=== PATIENT | female | born 1970 | race Two or more races ===

== ENCOUNTER 2017-03-18 18:00 | Emergency (ER) | payer MEDICAID, SELFPAY ==
[~2017-03-18] VITALS: Ht 157.5 cm; Wt 72.2 kg
[2017-03-18] MEDS ORDERED: SODIUM CHLORIDE FLUSH 10ML SYR IVF ONE (18:30)
[2017-03-18] MEDS ORDERED: SODIUM CHLORIDE 0.9% 1,000ML IVBOLUS ONE (18:30)
[2017-03-18] MEDS ORDERED: ONDANSETRON 2MG/ML, 2ML IVPush ONE (18:30)
[2017-03-18 19:03] LABS: BLOOD UREA NITROGEN 9 mg/dL (7-18)
[2017-03-18] MEDS ORDERED: HYDROmorphone 1 MG/ML, 1ML ONE (20:00)
[2017-03-18] MEDS ORDERED: HYDROmorphone 1 MG/ML, 1ML IM ONE (20:00)
[2017-03-18] MEDS ORDERED: OXYcodone/APAP 10/325MG TABLET ONE (21:14)
[2017-03-18 21:17] VITALS: BP 142/91
[2017-03-18] MEDS ORDERED: OXYcodone/APAP 10/325MG TABLET PO ONE (21:30)
== END 2017-03-18 21:20 | disposition home or self-care (01) ==
LOC: ED 21:14
DX: G43.011 Migraine without aura, intractable, with status migrainosus (principal); R10.31 Right lower quadrant pain; R10.32 Left lower quadrant pain; G89.29 Other chronic pain; I10 Essential (primary) hypertension; Z86.19 Personal history of other infectious and parasitic diseases; F13.20 Sedative, hypnotic or anxiolytic dependence, uncomplicated; F20.9 Schizophrenia, unspecified
CPT/HCPCS: 36415; 76830; 80048; 81003; 82040; 84703; 85025; 96372; 99285; J1170

== ENCOUNTER 2018-11-26 06:25 | Emergency (ER) | payer MEDICAID ==
[~2018-11-26] VITALS: Ht 157.5 cm; Wt 65.0 kg
[2018-11-26] MEDS ORDERED: ONDANSETRON 2MG/ML, 2ML IVPush ONE (07:30)
[2018-11-26] MEDS ORDERED: SODIUM CHLORIDE FLUSH 10ML SYR IVF ONE (07:30)
[2018-11-26] MEDS ORDERED: ACETAMINOPHEN 325 MG TABLET PO ONE (07:30)
--- NOTE | 2018-11-26 07:31 | NUR ---
AFTER PROVIDER EXAM, UP TO BATHROOM WITHOUT ASSISTANCE AND THEN TO CT
[2018-11-26 07:51] LABS: RAPID INFLUENZA A Negative (Negative); RAPID INFLUENZA B Negative (Negative)
[2018-11-26] MEDS ORDERED: KETOROLAC 30 MG/1 ML IVPush ONE (08:00)
--- NOTE | 2018-11-26 08:04 | NUR ---
UPON RETURN FROM CT IV ESTABLISHED. LAB DRAWING BLOOD
[2018-11-26 08:31] LABS: BASOPHILS # (AUTO) 0.02 x10^3/uL (0-0.1); BASOPHILS % (AUTO) 0 % (0-1); EOSINOPHILS # (AUTO) 0.02 x10^3/uL (0-0.4); EOSINOPHILS % (AUTO) 0 % (1-7); LYMPHOCYTES # (AUTO) 1.31 x10^3/uL (1-3.4); LYMPHOCYTES % (AUTO) 15 % (22-44); MD NO; MEAN CORPUSCULAR HEMOGLOBIN 32.9 pg (27.0-34.8); MEAN CORPUSCULAR VOLUME 96.7 fL (80-100); MONOCYTES # (AUTO) 0.92 x10^3/uL (0.2-0.8); MONOCYTES % (AUTO) 11 % (2-9); NEUTROPHILS # (AUTO) 6.32 x10^3/uL (1.8-6.8); NEUTROPHILS % (AUTO) 74 % (42-75); PLATELET COUNT 190 x10^3/uL (130-400); RED BLOOD COUNT 4.11 x10^6/uL (3.82-5.3); RED CELL DISTRIBUTION WIDTH 13.3 % (9.6-15.2)
[2018-11-26 08:40] LABS: ALANINE AMINOTRANSFERASE 27 U/L (12-78); ALBUMIN 3.3 g/dL (3.4-5.0); ANION GAP 7 mmol/L (5-15); CALCIUM 8.4 mg/dL (8.5-10.1); CHLORIDE 112 mmol/L (98-107); CREATININE 0.69 mg/dL (0.55-1.02)
[2018-11-26 08:42] LABS: ALKALINE PHOSPHATASE 80 U/L (45-117); BILIRUBIN,TOTAL 0.3 mg/dL (0.2-1.0); TOTAL PROTEIN 7.7 g/dL (6.4-8.2)
[2018-11-26] MEDS ORDERED: KETOROLAC 30 MG/1 ML ONE (09:01)
[2018-11-26] MEDS ORDERED: ONDANSETRON 2MG/ML, 2ML ONE (09:01)
[2018-11-26] MEDS ORDERED: ACETAMINOPHEN 325 MG TABLET ONE (09:02)
--- NOTE | 2018-11-26 09:08 | NUR ---
MEDICATED FOR CHEST AND ADOMINAL PAIN WITH NAUSEA PER ORDERS
[2018-11-26 10:02] VITALS: BP 105/74
--- NOTE | 2018-11-26 10:03 | NUR ---
PAIN AND NAUSEA IMPROVED SINCE MEDICATED ALTHOUGH PAIN IS STILL THERE. GIVEN TEACHING ABOUT PRESCRIPTIONS AND HOME CARE.
--- NOTE | 2018-11-26 10:06 | NUR ---
AMBULATED TO BATHROOM AND THEN TO DISCHARGE WINDOW
== END 2018-11-26 10:08 | disposition home or self-care (01) ==
LOC: ED 09:31
DX: B34.9 Viral infection, unspecified (principal); R51 Headache; I10 Essential (primary) hypertension; F41.1 Generalized anxiety disorder; M54.30 Sciatica, unspecified side; F20.9 Schizophrenia, unspecified; F31.9 Bipolar disorder, unspecified; M79.10 Myalgia, unspecified site; R63.0 Anorexia; R10.84 Generalized abdominal pain; R19.7 Diarrhea, unspecified; R11.10 Vomiting, unspecified; R53.83 Other fatigue; Z72.9 Problem related to lifestyle, unspecified; Z86.19 Personal history of other infectious and parasitic diseases
CPT/HCPCS: 36415; 70450; 71046; 80053; 83690; 85025; 87400; 96374; 96375; 99284; J1885; J2405

== ENCOUNTER 2019-01-21 12:37 | Inpatient (IN) | payer MEDICAID ==
[~2019-01-21] VITALS: Ht 157.5 cm; Wt 68.8 kg
--- NOTE | 2019-01-21 12:42 | NUR ---
pt doc from [facility], report received from EMS. pt states that she has had headache x 2 weeks, also left sided abd pain radiating to midline abd x 2 weeks. pt notes she began having n/v this am. pt was diagnosed with left fallopian abcess and bilateral ovarian cysts at [facility]. pt attached to bp and spo2 monitors, LIZ Colon at bedside.
[2019-01-21] MEDS ORDERED: ONDANSETRON 2MG/ML, 2ML IVPush ONE (13:00)
[2019-01-21] MEDS ORDERED: morphine SULFATE 10 MG/ML, 1ML IVPush ONE (13:00)
[2019-01-21] MEDS ORDERED: MORPHINE SULFATE 4 MG/ML, 1ML ONE ×3 (13:18→17:50)
--- NOTE | 2019-01-21 13:49 | NUR ---
pt a&o, resps even and unlabored. pt reports abd pain level 4/10 at this time. pt to US at this time.
--- NOTE | 2019-01-21 14:24 | NUR ---
PT BACK FROM US, RUBY ON ARRIVAL.
[2019-01-21] MEDS ORDERED: MORPHINE SULFATE 4 MG/ML, 1ML IVPush ONE (15:00)
--- NOTE | 2019-01-21 15:10 | NUR ---
pt back from US, seen by LIZ Colon, pt reports pain back to 10/10 to right lower abd after US. pt medicated per emar, tolerated well. pt ramona&yuliana, resps even and unlaboredbrittani. awaiting coffee blender consult and dispo. Addendum: 01/21/19 at 2113 by CATHRYN pt back from US, seen by LIZ Colon, pt reports pain back to 10/10 to left lower abd after US. pt medicated per emar, tolerated well. pt abi, resps even and brittani amaya. awaiting coffee blender consult and dispo.
[2019-01-21] MEDS ORDERED: KETOROLAC 30 MG/1 ML IVPush ONE (15:30)
--- NOTE | 2019-01-21 15:37 | NUR ---
pt reports 6/10 abd pain. pt a&o, resps even and unlabored, nadn. pt awaiting obgyn consult and dispo, pt aware of POC.
--- NOTE | 2019-01-21 16:00 | NUR ---
PIV PLACED TRANSPLANT NURSE PRACTITIONER IS SWOLLEN AND PAINFUL WITH FLUSH. PIV DC'D WITH TIP INTACT, NEW PIV PLACED TO LEFT FORARM.
[2019-01-21] MEDS ORDERED: ONDANSETRON 2MG/ML, 2ML ONE ×2 (16:13→21:50)
[2019-01-21] MEDS ORDERED: KETOROLAC 30 MG/1 ML ONE (16:13)
--- NOTE | 2019-01-21 16:24 | NUR ---
PT MEDICATED PER EMAR, TOLERATED WELL.
--- NOTE | 2019-01-21 17:51 | NUR ---
PT REPORTS INCREASE IN LEFT ABD PAIN, REQUESTS ADDITIONAL PAIN MEDICATION. EDMD LAW NOTIFIED. OBGYN AT BEDSIDE FOR CONSULT.
[2019-01-21] MEDS: MORPHINE SULFATE 4 MG/ML, 1ML IVPush PRN (17:52)
--- NOTE | 2019-01-21 18:30 | NUR ---
OBGYN CONSULT AND EXAM COMPLETE. PT REPORTS ABD PAIN LEVEL AT 6/10 AT THIS TIME, STATES TOLERABLE. PT A&O, RESPS EVEN AND UNLABORED. PT AWAITING CT ABD AND DISPO.
[2019-01-21] MEDS ORDERED: OMNIPAQUE 350 MG/ML, 100ML BOTTLE ONE (18:54)
--- NOTE | 2019-01-21 19:02 | NUR ---
REPORT RECEIVED FROM JOSE LUIS SANDOVAL.
[2019-01-21] MEDS ORDERED: SODIUM CHLORIDE 0.9% 1,000 ML IV ONE (19:30)
[2019-01-21] MEDS ORDERED: LEVE500T54 PO (19:37)
[2019-01-21] MEDS ORDERED: METO50TA82 PO (19:47)
[2019-01-21] MEDS ORDERED: DULO20CA45 PO (19:48)
[2019-01-21] MEDS ORDERED: IBUP-1223 PO (19:48)
--- NOTE | 2019-01-21 19:59 | NUR ---
REPORT GIVEN TO BLANKET INSPECTOR.
[2019-01-21] MEDS ORDERED: MIDAZOLAM 1 MG/ML, 2ML ONE (20:27)
[2019-01-21] MEDS ORDERED: FENTANYL PF 250 MCG/5ML ONE (20:27)
[2019-01-21] MEDS ORDERED: EPINEPHRINE 1 MG/ML, 1ML ONE (20:46)
[2019-01-21] MEDS ORDERED: BUPIVACAINE/EPI 0.5% 1:200K ONE (20:46)
[2019-01-21] MEDS ORDERED: BUPIVACAINE/PF 0.25% ONE (20:46)
[2019-01-21] MEDS ORDERED: hydrALAzine 20 MG/ML, 1ML IV PRN (21:00)
[2019-01-21] MEDS ORDERED: MEPERIDINE/PF 25MG/0.5ML IVPush PRN (21:00)
[2019-01-21] MEDS ORDERED: PROMETHAZINE 25 MG/ML, 1ML IV PRN (21:00)
[2019-01-21] MEDS ORDERED: HALOPERIDOL 5 MG/ML IV PRN (21:00)
[2019-01-21] MEDS ORDERED: HYDROmorphone 2 MG/ML, 1ML IVPush PRN (21:00)
[2019-01-21] MEDS ORDERED: ACETAMINOPHEN 325 MG TABLET PO PRN (21:00)
[2019-01-21] MEDS ORDERED: OXYcodone 5 MG/5 ML ORAL.SOL UDC PO PRN (21:00)
[2019-01-21] MEDS ORDERED: SUGAMMADEX 200 MG/2 ML IVPush ONE (21:47)
[2019-01-21] MEDS ORDERED: DEXAMETHASONE 4 MG/ML, 1ML ONE (21:50)
[2019-01-21] MEDS ORDERED: LIDOCAINE-MPF 2% ,5ML ONE (21:50)
[2019-01-21] MEDS ORDERED: CEFOTETAN PMX 2GM/50ML 50 ML ONE (21:50)
[2019-01-21] MEDS ORDERED: PROPOFOL 10 MG/ML, 20ML ONE (21:50)
[2019-01-21] MEDS ORDERED: ROCURONIUM 10MG/ML,5ML ONE (21:50)
[2019-01-21] MEDS ORDERED: OXYcodone 5 MG/5 ML ORAL.SOL UDC ONE (22:06)
[2019-01-21] MEDS ORDERED: FENTANYL PF 100 MCG/2ML ONE (22:20)
[2019-01-21] MEDS: FENTANYL PF 100 MCG/2ML IV PRN ×2 (22:21→22:29)
[2019-01-21] MEDS ORDERED: HYDROmorphone 2 MG/ML, 1ML ONE (22:32)
[2019-01-22] VITALS: BP 119/80
[2019-01-22] MEDS: MORPHINE SULFATE 4 MG/ML, 1ML IVPush PRN (00:15)
[2019-01-22] MEDS ORDERED: morphine SULFATE 10 MG/ML, 1ML IV PRN (02:00)
[2019-01-22] MEDS: OXYcodone/APAP 5/325MG TABLET PO PRN ×3 (02:07→10:08)
[2019-01-22 04:00] VITALS: BP 105/64
[2019-01-22] MEDS: IBUPROFEN 600 MG TABLET PO SCH ×2 (06:04→10:08)
[2019-01-22 07:51] VITALS: BP 139/73
[2019-01-22 09:59] VITALS: BP 145/71
[2019-01-22] MEDS ORDERED: TRAM50TA2 PO (10:23)
== END 2019-01-22 10:40 | disposition home or self-care (01) | DRG 745 ==
LOC: ED 16:06 → EDIP 19:49 → 4NOR 23:18 → DCLOUNGE 01-22 10:21
PROVIDERS: ADMIT Student in an Organized Health Care Education/Training Program; ATTEND Student in an Organized Health Care Education/Training Program
PROC: 0UB74ZZ Excision of Bilateral Fallopian Tubes, Percutaneous Endoscopic Approach (ICD-10-PCS; principal; 2019-01-21 20:30)
DX: N83.8 Other noninflammatory disorders of ovary, fallopian tube and broad ligament (principal); N83.00 Follicular cyst of ovary, unspecified side; B18.2 Chronic viral hepatitis C; F17.200 Nicotine dependence, unspecified, uncomplicated; F20.9 Schizophrenia, unspecified; F31.9 Bipolar disorder, unspecified; F41.1 Generalized anxiety disorder; G40.909 Epilepsy, unspecified, not intractable, without status epilepticus; I10 Essential (primary) hypertension; K66.0 Peritoneal adhesions (postprocedural) (postinfection); K76.0 Fatty (change of) liver, not elsewhere classified; K82.8 Other specified diseases of gallbladder; N70.11 Chronic salpingitis
CPT/HCPCS: 74177; 76830; 88302; G0378; J0171; J1100; J1170; J1885; J2250; J2405; J2704; J3010; J3490; Q9967; J2270; J7030

== ENCOUNTER 2019-01-26 08:51 | Observation (INO) | payer MEDICAID ==
[~2019-01-26] VITALS: Ht 157.5 cm; Wt 63.7 kg
[~2019-01-26 08:51] MED LIST: DULO20CA45 PO; IBUP-1223 PO; LEVE500T54 PO; METO50TA82 PO; TRAM50TA2 PO
[2019-01-26] MEDS ORDERED: ONDANSETRON 2MG/ML, 2ML IVPush ONE ×2 (09:30→14:30)
[2019-01-26] MEDS ORDERED: SODIUM CHLORIDE FLUSH 10ML SYR IVF ONE (09:30)
[2019-01-26] MEDS ORDERED: ONDANSETRON 2MG/ML, 2ML ONE ×2 (09:48→14:22)
[2019-01-26] MEDS ORDERED: MORPHINE SULFATE 4 MG/ML, 1ML ONE ×3 (09:49→12:31)
[2019-01-26] MEDS: MORPHINE SULFATE 4 MG/ML, 1ML IVPush PRN ×2 (09:52→10:35)
--- NOTE | 2019-01-26 09:56 | NUR ---
PT RESTING COMFORTABLY ON AN E.R. GURNEY AFTER ADMIN. OF PAIN MEDS. VS ARE STABLE AND WDL. I WILL CONTINUE TO MONITOR AND TREAT ORDERED, WELL PRN.
--- NOTE | 2019-01-26 10:24 | NUR ---
PT AMBULATED TO AND FROM THE RESTROOM WITH A STEADY GAIT. URINE SAMPLE PROVIDED, AND WALKED TO THE LAB FOR ANALYSIS.
[2019-01-26 10:25] LABS: BASOPHILS # (AUTO) 0.03 x10^3/uL (0-0.1); BASOPHILS % (AUTO) 0 % (0-1); EOSINOPHILS # (AUTO) 0.21 x10^3/uL (0-0.4); EOSINOPHILS % (AUTO) 3 % (1-7); LYMPHOCYTES # (AUTO) 2.43 x10^3/uL (1-3.4); LYMPHOCYTES % (AUTO) 35 % (22-44); MD NO; MEAN CORPUSCULAR HEMOGLOBIN 34.3 pg (27.0-34.8); MEAN CORPUSCULAR HGB CONC 35.3 g/dL (32.4-35.8); MEAN CORPUSCULAR VOLUME 97.1 fL (80-100); MONOCYTES % (AUTO) 6 % (2-9); NEUTROPHILS % (AUTO) 56 % (42-75); PLATELET COUNT 249 x10^3/uL (130-400); RED BLOOD COUNT 3.88 x10^6/uL (3.82-5.3); RED CELL DISTRIBUTION WIDTH 12.9 % (9.6-15.2)
[2019-01-26 10:48] LABS: MICROSCOPIC NOT IND
[2019-01-26 10:52] LABS: CULTURE INDICATED? NO
[2019-01-26 11:20] LABS: ANION GAP 4 mmol/L (5-15); CALCIUM 9.1 mg/dL (8.5-10.1); CHLORIDE 111 mmol/L (98-107); CREATININE 0.76 mg/dL (0.55-1.02)
[2019-01-26] MEDS ORDERED: OMNIPAQUE 350 MG/ML, 100ML BOTTLE ONE (11:44)
--- NOTE | 2019-01-26 11:57 | NUR ---
PT RESTING COMFORTABLY ON AN E.R. GURNEY WHILE AWAITING FURTHER PLAN OF CARE. PAIN IS WELL CONTROLLED WITH MORPHINE. VS ARE STABLE, AND WDL. I WILL CONTINUE TO MONITOR AND TREAT ORDERED, WELL PRN WHILE AWAITING PLANS.
[2019-01-26] MEDS ORDERED: MORPHINE SULFATE 4 MG/ML, 1ML IVPush ONE (13:00)
--- NOTE | 2019-01-26 13:24 | NUR ---
PT AMBULATED TO AND FROM THE TELEPHONE WITH A STEADY GAIT. NO ACUTE CHANGES NOTED AT THIS TIME. I WILL CONTINUE TO MONITOR AND TREAT ORDERED, WELL PRN WHILE AWAITING SURGERY.
[2019-01-26] MEDS ORDERED: HYDROmorphone 2 MG/ML, 1ML ONE ×2 (14:21→18:09)
--- NOTE | 2019-01-26 14:27 | NUR ---
TASK RN: PT MED NOTED FOR PAIN 06/08. CALL LIGHT W/I REACH, VSS
[2019-01-26] MEDS ORDERED: HYDROmorphone 2 MG/ML, 1ML IVPush PRN (14:30)
--- NOTE | 2019-01-26 14:47 | NUR ---
PT RESTING ON AN E.R. GURNEY AWAITING SURGERY. PAIN IS WELL CONTROLLED. IN THE MEANTIME I WILL CONTINUE TO MONITOR AND TREAT.
--- NOTE | 2019-01-26 15:12 | NUR ---
[facility] ([facility]) IN THE [facility]. WE WILL BEGIN TO PREPARE FOR TRANSPORT AT THIS TIME.
[2019-01-26] MEDS ORDERED: SODIUM CHLORIDE FLUSH 10ML SYR IVF PRN (15:30)
[2019-01-26] MEDS ORDERED: MIDAZOLAM 1 MG/ML, 2ML ONE (16:23)
[2019-01-26] MEDS ORDERED: FENTANYL PF 250 MCG/5ML ONE (16:23)
[2019-01-26] MEDS ORDERED: BUPIVACAINE/EPI 0.5% 1:200K ONE (17:31)
[2019-01-26] MEDS ORDERED: FENTANYL PF 100 MCG/2ML ONE (18:08)
[2019-01-26] MEDS ORDERED: OXYcodone 5 MG/5 ML ORAL.SOL UDC ONE ×2 (18:09→18:56)
[2019-01-26] MEDS: FENTANYL PF 100 MCG/2ML IV PRN ×2 (18:10→18:18)
[2019-01-26] MEDS ORDERED: LORazepam 2 MG/ML, 1ML ONE (18:10)
[2019-01-26] MEDS: OXYcodone 5 MG/5 ML ORAL.SOL UDC PO PRN ×2 (18:15→18:57)
[2019-01-26] MEDS: HYDROmorphone 2 MG/ML, 1ML IVPush PRN ×4 (18:27→18:44)
[2019-01-26] MEDS ORDERED: MEPERIDINE/PF 25MG/0.5ML IVPush PRN (18:30)
[2019-01-26] MEDS ORDERED: hydrALAzine 20 MG/ML, 1ML IV PRN (18:30)
[2019-01-26] MEDS ORDERED: LABETALOL 5MG/ML, 20ML IV PRN (18:30)
[2019-01-26] MEDS ORDERED: MIDAZOLAM 1 MG/ML, 2ML IV PRN (18:30)
[2019-01-26] MEDS ORDERED: LORazepam 2 MG/ML, 1ML IVPush PRN (18:30)
[2019-01-26] MEDS ORDERED: ACETAMINOPHEN 325 MG TABLET PO PRN (18:30)
[2019-01-26] MEDS ORDERED: PROMETHAZINE 25 MG/ML, 1ML IV PRN (18:30)
[2019-01-26] MEDS ORDERED: MEPERIDINE/PF 25MG/ML,1ML ONE (18:56)
[2019-01-26] MEDS ORDERED: DIPHENHYDRAMINE 50 MG/ML, 1ML IV PRN (20:30)
[2019-01-26] MEDS ORDERED: ONDANSETRON 2MG/ML, 2ML IV PRN (20:30)
[2019-01-26] MEDS ORDERED: DIPHENHYDRAMINE 25 MG CAPSULE PO PRN (20:30)
[2019-01-26] MEDS: OXYcodone/APAP 5/325MG TABLET PO PRN (21:53)
[2019-01-27 00:18] VITALS: BP 77/42
[2019-01-27] MEDS ORDERED: SODIUM CHLORIDE 0.9%, 500ML IVBOLUS ONE (02:30)
[2019-01-27] MEDS: OXYcodone/APAP 5/325MG TABLET PO PRN ×4 (03:18→15:06)
[2019-01-27 03:45] VITALS: BP 99/66
[2019-01-27] MEDS: morphine SULFATE 10 MG/ML, 1ML IV PRN ×6 (03:46→11:48)
[2019-01-27 06:09] LABS: BASOPHILS # (AUTO) 0.03 x10^3/uL (0-0.1); BASOPHILS % (AUTO) 0 % (0-1); EOSINOPHILS # (AUTO) 0.18 x10^3/uL (0-0.4); EOSINOPHILS % (AUTO) 2 % (1-7); LYMPHOCYTES # (AUTO) 2.56 x10^3/uL (1-3.4); LYMPHOCYTES % (AUTO) 34 % (22-44); MD NO; MEAN CORPUSCULAR VOLUME 97.2 fL (80-100); MEAN PLATELET VOLUME 7.1 fL (7.4-10.4); MONOCYTES # (AUTO) 0.62 x10^3/uL (0.2-0.8); MONOCYTES % (AUTO) 8 % (2-9); NEUTROPHILS # (AUTO) 4.24 x10^3/uL (1.8-6.8); NEUTROPHILS % (AUTO) 56 % (42-75); PLATELET COUNT 225 x10^3/uL (130-400); RED BLOOD COUNT 3.26 x10^6/uL (3.82-5.3); RED CELL DISTRIBUTION WIDTH 12.8 % (9.6-15.2)
[2019-01-27 06:30] VITALS: BP 91/57
[2019-01-27] MEDS ORDERED: LEVETIRACETAM 500 MG TABLET PO SCH (09:00)
[2019-01-27] MEDS ORDERED: METOPROLOL TARTRATE 50 MG TABLET PO SCH (09:00)
[2019-01-27] MEDS ORDERED: METOPROLOL SUCCINATE 25 MG TAB.ER.24H PO SCH (09:30)
[2019-01-27] MEDS ORDERED: SIMETHICONE 125 MG CHEW TAB PO SCH (13:00)
[2019-01-27] MEDS ORDERED: KETOROLAC 30 MG/1 ML IM SCH (13:30)
[2019-01-27] MEDS ORDERED: KETOROLAC 30 MG/1 ML IV SCH (13:30)
[2019-01-27 13:36] VITALS: BP 92/60
[2019-01-27] MEDS ORDERED: TRAM50TA2 PO (15:50)
[2019-01-27] MEDS ORDERED: IBUP200T49 PO (15:50)
[2019-01-27] MEDS ORDERED: CEFAZOLIN 1,000 MG ONE (17:12)
[2019-01-27] MEDS ORDERED: DEXAMETHASONE 4 MG/ML, 1ML ONE (17:12)
[2019-01-27] MEDS ORDERED: KETOROLAC 30 MG/1 ML ONE (17:12)
[2019-01-27] MEDS ORDERED: SUCCINYLCHOLINE 20 MG/ML, 10ML ONE (17:12)
[2019-01-27] MEDS ORDERED: ONDANSETRON 2MG/ML, 2ML ONE (17:12)
[2019-01-27] MEDS ORDERED: PROPOFOL 10 MG/ML, 20ML ONE (17:12)
[2019-01-27] MEDS ORDERED: ROCURONIUM 10 MG/ML,10ML ONE (17:12)
[2019-01-27] MEDS ORDERED: DULOXETINE 30 MG CAPSULE.DR PO SCH ×2 (21:00)
== END 2019-01-27 16:00 | disposition home or self-care (01) ==
LOC: ED 11:18 → EDIP 15:10 → INTOOBSV 15:10 → UNDOADMOB 15:10 → EDIP 17:00 → 4NOR 19:30 → EDIP 19:30 → UNDODISOB 01-27 16:00
PROVIDERS: ADMIT Student in an Organized Health Care Education/Training Program; ATTEND Student in an Organized Health Care Education/Training Program
DX: K43.2 Incisional hernia without obstruction or gangrene (principal); G40.909 Epilepsy, unspecified, not intractable, without status epilepticus; I10 Essential (primary) hypertension; Z87.891 Personal history of nicotine dependence; Z79.899 Other long term (current) drug therapy
CPT/HCPCS: 36415; 49655; 74177; 80048; 81003; 82040; 84703; 85014; 85018; 85025; 96374; 96375; 96376; 99285; G0378; J0330; J0690; J1100; J1170; J1885; J2060; J2250; J2270; J2405; J2704; J3010; J7040; Q9967

== ENCOUNTER 2019-01-28 07:07 | Observation (INO) | payer MEDICAID ==
[~2019-01-28] VITALS: Ht 157.5 cm; Wt 66.0 kg
[~2019-01-28 07:07] MED LIST changes: +IBUP200T49 PO
[2019-01-28] MEDS ORDERED: HYDROmorphone 2 MG/ML, 1ML ONE ×3 (07:54→09:25)
[2019-01-28] MEDS ORDERED: ONDANSETRON 2MG/ML, 2ML ONE (07:54)
[2019-01-28] MEDS ORDERED: ONDANSETRON 2MG/ML, 2ML IVPush ONE (08:00)
[2019-01-28] MEDS ORDERED: SODIUM CHLORIDE FLUSH 10ML SYR IVF ONE (08:00)
[2019-01-28] MEDS: HYDROmorphone 2 MG/ML, 1ML IVPush PRN ×2 (08:01→08:20)
--- NOTE | 2019-01-28 08:11 | NUR ---
PT REQUESTED TO HAVE PAIN MEDICATION PRIOR TO ABD XR. IV STARTED AND MEDICATED PER ORDERS. RV'WD POC WITH PT.
[2019-01-28 08:27] LABS: BASOPHILS # (AUTO) 0.02 x10^3/uL (0-0.1); BASOPHILS % (AUTO) 0 % (0-1); EOSINOPHILS # (AUTO) 0.19 x10^3/uL (0-0.4); EOSINOPHILS % (AUTO) 2 % (1-7); LYMPHOCYTES # (AUTO) 1.87 x10^3/uL (1-3.4); LYMPHOCYTES % (AUTO) 22 % (22-44); MD NO; MEAN CORPUSCULAR HGB CONC 33.8 g/dL (32.4-35.8); MEAN CORPUSCULAR VOLUME 97.6 fL (80-100); MEAN PLATELET VOLUME 7.1 fL (7.4-10.4); MONOCYTES # (AUTO) 0.56 x10^3/uL (0.2-0.8); MONOCYTES % (AUTO) 7 % (2-9); NEUTROPHILS # (AUTO) 5.81 x10^3/uL (1.8-6.8); NEUTROPHILS % (AUTO) 69 % (42-75); PLATELET COUNT 239 x10^3/uL (130-400); RED BLOOD COUNT 3.59 x10^6/uL (3.82-5.3); RED CELL DISTRIBUTION WIDTH 13.1 % (9.6-15.2)
--- NOTE | 2019-01-28 08:38 | NUR ---
MEDICATED PT WITH SECOND DOSE DILAUDID PER ORDERS. PT TO XR VIA GURNAGI.
[2019-01-28 08:39] LABS: ALANINE AMINOTRANSFERASE 28 U/L (12-78); ALBUMIN 3.5 g/dL (3.4-5.0); ANION GAP 5 mmol/L (5-15); CALCIUM 8.6 mg/dL (8.5-10.1); CHLORIDE 113 mmol/L (98-107); CREATININE 0.59 mg/dL (0.55-1.02)
[2019-01-28 08:43] LABS: ALKALINE PHOSPHATASE 81 U/L (45-117); BILIRUBIN,TOTAL 0.2 mg/dL (0.2-1.0); TOTAL PROTEIN 6.8 g/dL (6.4-8.2); TROPONIN I < 0.015 ng/mL (0.000-0.045)
--- NOTE | 2019-01-28 08:56 | NUR ---
PT STILL HAVING INTENSE ABD PAIN, CRYING. ERP AT BS NOW.
--- NOTE | 2019-01-28 09:22 | NUR ---
PT REFUSES VALIUM, STATES, "I JUST WANT TO CONTROL MY PAIN. THIS IS UNBEARABLE!" ERP NOTIFIED.
[2019-01-28] MEDS ORDERED: HYDROmorphone 1 MG/ML, 1ML INJ IV ONE (09:30)
[2019-01-28] MEDS ORDERED: DIAZEPAM 5 MG/ML, 2ML IV ONE (09:30)
--- NOTE | 2019-01-28 09:33 | NUR ---
PT MEDICATED WITH ANOTHER 0.5MG DILAUDID PER ORDERS. RV'WD POC WITH HER.
[2019-01-28 09:36] LABS: MICROSCOPIC NOT IND
[2019-01-28 09:50] LABS: CULTURE INDICATED? NO
--- NOTE | 2019-01-28 10:24 | NUR ---
SIL YUSUF WAS AT BS FOR RE-EVAL.
--- NOTE | 2019-01-28 10:39 | NUR ---
PT UPDATED ON PLAN FOR ADMISSION, VERBALIZES UNDERSTANDING. PT REPORTS SOME PAIN RELIEF BUT STILL HAVING ABD PAIN.
[2019-01-28] MEDS ORDERED: SODIUM CHLORIDE FLUSH 10ML SYR IVF PRN (11:30)
--- NOTE | 2019-01-28 11:38 | NUR ---
ANOTHER SNACK PROVIDED TO PT. PT STATES SHE FEELS MORE CALM BUT STILL C/O ABD PAIN, REQUESTS TORADOL. WILL NOTIFY ERP.
[2019-01-28 12:36] VITALS: BP 124/78
[2019-01-28] MEDS ORDERED: LIDODERM 5% PATCH TD PRN (14:30)
[2019-01-28] MEDS ORDERED: BISACODYL 10 MG SUPP PR PRN (14:30)
[2019-01-28] MEDS ORDERED: DOCUSATE 100 MG CAPSULE PO PRN (14:30)
[2019-01-28] MEDS: ACETAMINOPHEN 325 MG TABLET PO PRN ×2 (15:20→20:22)
[2019-01-28] MEDS: POLYETHYLENE GLYCOL 17 GM PACKET PO PRN (16:55)
[2019-01-28] MEDS: IBUPROFEN 600 MG TABLET PO PRN (19:38)
[2019-01-28] MEDS: LEVETIRACETAM 500 MG TABLET PO SCH (20:22)
[2019-01-28 20:56] VITALS: BP 110/72
[2019-01-28] MEDS ORDERED: DIPHENHYDRAMINE 50 MG CAPSULE PO PRN (23:00)
[2019-01-29 02:51] VITALS: BP 102/60
[2019-01-29 06:49] VITALS: BP 106/63
[2019-01-29 08:36] LABS: ANION GAP 4 mmol/L (5-15); CALCIUM 8.9 mg/dL (8.5-10.1); CHLORIDE 108 mmol/L (98-107); CREATININE 0.73 mg/dL (0.55-1.02)
[2019-01-29 08:37] LABS: MEAN CORPUSCULAR HEMOGLOBIN 33.2 pg (27.0-34.8); MEAN CORPUSCULAR HGB CONC 34.1 g/dL (32.4-35.8); MEAN CORPUSCULAR VOLUME 97.4 fL (80-100); MEAN PLATELET VOLUME 7.4 fL (7.4-10.4); PLATELET COUNT 257 x10^3/uL (130-400); RED BLOOD COUNT 3.92 x10^6/uL (3.82-5.3); RED CELL DISTRIBUTION WIDTH 12.9 % (9.6-15.2)
[2019-01-29] MEDS: POLYETHYLENE GLYCOL 17 GM PACKET PO PRN (08:41)
[2019-01-29] MEDS: LEVETIRACETAM 500 MG TABLET PO SCH (08:42)
[2019-01-29] MEDS ORDERED: DULOXETINE 20 MG CAPSULE.DR HOMEMEDPO SCH (09:00)
[2019-01-29] MEDS ORDERED: METOPROLOL TARTRATE 50 MG TABLET PO SCH (09:00)
[2019-01-29] MEDS ORDERED: SENNA/DOCUSATE TABLET PO SCH (09:00)
[2019-01-29 09:33] LABS: MD YES
[2019-01-29 09:37] LABS: EOS#(MANUAL) 0.06 x10^3/uL (0.0-0.4); EOS% (MANUAL) 1 % (1-7); LYMPH#(MANUAL) 2.07 x10^3/uL (1-3.4); LYMPHS% (MANUAL) 37 % (22-44); MONOS#(MANUAL) 0.45 x10^3/uL (0.3-2.7); MONOS% (MANUAL) 8 % (2-9); REACTIVE LYMPHS # (MANUAL) 0.84 x10^3/uL (0-0); REACTIVE LYMPHS % (MANUAL) 15 % (0-0); SEG#(MANUAL) 2.18 x10^3/uL (1.8-6.8); SEGS% (MANUAL) 39 % (42-75)
[2019-01-29 09:39] LABS: <PLATELET ESTIMATE> ADEQUATE; <PLT MORPHOLOGY> NORMAL PLT MORPH; <RBC MORPHOLOGY> NORMAL
[2019-01-29] MEDS: IBUPROFEN 600 MG TABLET PO PRN (11:11)
[2019-01-29] MEDS ORDERED: GLYCERIN ADULT SUPP PR ONE (12:30)
[2019-01-29 12:52] VITALS: BP 161/96
== END 2019-01-29 14:15 | disposition home or self-care (01) ==
LOC: ED 08:17 → UNDOADMOB 11:17 → EDIP 11:17 → 4NOR 11:17 → INTOOBSV 11:17 → EDIP 12:22 → 4NOR 12:22 → DCLOUNGE 01-29 14:09 → UNDODISOB 01-29 14:15
PROVIDERS: ADMIT Internal Medicine; ATTEND Internal Medicine
DX: R10.9 Unspecified abdominal pain (principal); I10 Essential (primary) hypertension; F31.9 Bipolar disorder, unspecified; G43.909 Migraine, unspecified, not intractable, without status migrainosus; M48.00 Spinal stenosis, site unspecified; F41.9 Anxiety disorder, unspecified
CPT/HCPCS: 36415; 74022; 74176; 80048; 80053; 81003; 83690; 84484; 85025; 93005; 96374; 96375; 96376; 99284; G0378; J1170; J2405

== ENCOUNTER 2019-02-07 13:59 | Emergency (ER) | payer MEDICAID ==
[~2019-02-07] VITALS: Ht 157.5 cm; Wt 57.9 kg
--- NOTE | 2019-02-07 14:13 | NUR ---
PT MEHRAN PATTON FROM [facility] WHERE SHE WAS ADMITTED YESTERDAY FOR A BIPOLAR MANIC EVENT. PT DENIES HOMICIDE OR SUICIDE AND IS NOT ON A LEGAL HOLD. PT WITH LEFT QUADRANT ABD PAIN AT WHICH SHE HAD SURGERY FOR THE REMOVAL OF HER FALLOPIAN TUBES AND A HERNIA REPAIR A FEW DAYS AGO. PT WITH INCREASING ABD PAIN. ASSESSMENT COMPLETED . PT PLACED ON BP AND CONT. PULSE OXIMETER.
[2019-02-07] MEDS ORDERED: MORPHINE SULFATE 4 MG/ML, 1ML IVPush PRN (14:30)
[2019-02-07] MEDS ORDERED: SODIUM CHLORIDE FLUSH 10ML SYR IVF ONE (14:30)
[2019-02-07 14:34] LABS: BASOPHILS # (AUTO) 0.05 x10^3/uL (0-0.1); BASOPHILS % (AUTO) 1 % (0-1); EOSINOPHILS # (AUTO) 0.21 x10^3/uL (0-0.4); EOSINOPHILS % (AUTO) 3 % (1-7); LYMPHOCYTES # (AUTO) 4.08 x10^3/uL (1-3.4); LYMPHOCYTES % (AUTO) 53 % (22-44); MD NO; MEAN CORPUSCULAR VOLUME 97.2 fL (80-100); MEAN PLATELET VOLUME 7.5 fL (7.4-10.4); MONOCYTES # (AUTO) 0.71 x10^3/uL (0.2-0.8); MONOCYTES % (AUTO) 9 % (2-9); NEUTROPHILS % (AUTO) 35 % (42-75); PLATELET COUNT 289 x10^3/uL (130-400); RED BLOOD COUNT 3.83 x10^6/uL (3.82-5.3)
[2019-02-07 14:44] LABS: ALANINE AMINOTRANSFERASE 23 U/L (12-78); ANION GAP 7 mmol/L (5-15); CALCIUM 8.9 mg/dL (8.5-10.1); CHLORIDE 113 mmol/L (98-107); SALICYLATE LEVEL 2.2 mg/dL (2.8-20.0)
[2019-02-07] MEDS ORDERED: ONDANSETRON 2MG/ML, 2ML ONE (14:47)
[2019-02-07] MEDS ORDERED: MORPHINE SULFATE 4 MG/ML, 1ML ONE (14:48)
[2019-02-07 14:50] LABS: ALKALINE PHOSPHATASE 86 U/L (45-117); BILIRUBIN,TOTAL 0.2 mg/dL (0.2-1.0); CREATININE 1.08 mg/dL (0.55-1.02); TOTAL PROTEIN 7.6 g/dL (6.4-8.2)
[2019-02-07 14:52] LABS: ACETAMINOPHEN < 2 mcg/mL (10-30)
[2019-02-07 15:20] LABS: MICROSCOPIC NOT IND
[2019-02-07 15:23] LABS: AMPHETAMINE SCREEN, URINE Negative (Negative); BARBITURATE SCREEN, URINE Negative (Negative); BENZODIAZEPINE SCREEN, URINE Negative (Negative); CANNABINOID SCREEN, URINE Negative (Negative); COCAINE SCREEN, URINE Negative (Negative); CULTURE INDICATED? NO; METHADONE SCREEN, URINE Negative (Negative); OPIATE SCREEN, URINE Negative (Negative)
[2019-02-07] MEDS ORDERED: ONDANSETRON 2MG/ML, 2ML IVPush ONE (15:30)
--- NOTE | 2019-02-07 15:41 | NUR ---
PT TAKEN TO RADIOLOGY
[2019-02-07] MEDS ORDERED: KETOROLAC 30 MG/1 ML IVPush ONE (16:00)
[2019-02-07] MEDS ORDERED: DIAZEPAM 5 MG TABLET PO ONE (16:00)
[2019-02-07] MEDS ORDERED: KETOROLAC 30 MG/1 ML ONE (16:06)
[2019-02-07] MEDS ORDERED: DIAZEPAM 5 MG TABLET ONE (16:07)
--- NOTE | 2019-02-07 17:15 | NUR ---
CALLED [facility] AND GAVE REPORT TO RN. PT THEN DISCHARGED VIA CAB AND INFORMED [facility] OF THIS TRANSPORTATION.
[2019-02-07 17:17] VITALS: BP 127/76
== END 2019-02-07 17:20 | disposition home or self-care (01) ==
LOC: ED 14:08
DX: G89.29 Other chronic pain (principal); R10.12 Left upper quadrant pain; R10.32 Left lower quadrant pain; M54.5 Low back pain; M54.6 Pain in thoracic spine; F17.200 Nicotine dependence, unspecified, uncomplicated; I10 Essential (primary) hypertension; G43.909 Migraine, unspecified, not intractable, without status migrainosus; Z86.19 Personal history of other infectious and parasitic diseases
CPT/HCPCS: 36415; 74177; 80053; 80307; 81003; 84703; 85025; 96374; 96375; 99284; J1885; J2405

== ENCOUNTER 2019-05-08 11:32 | Emergency (ER) | payer MEDICAID ==
[~2019-05-08] VITALS: Ht 165.1 cm; Wt 70.0 kg
[2019-05-08 14:54] VITALS: BP 99/67
== END 2019-05-08 14:57 | disposition home or self-care (01) ==
LOC: ED 12:49
DX: N72 Inflammatory disease of cervix uteri (principal); R10.30 Lower abdominal pain, unspecified; I10 Essential (primary) hypertension; G43.909 Migraine, unspecified, not intractable, without status migrainosus; Z86.19 Personal history of other infectious and parasitic diseases
CPT/HCPCS: 36415; 74177; 80053; 83605; 84703; 85025; 85651; 86140; 87040; 87210; 87491; 87591; 87808; 96365; 96375; 99284; J0696; J1170; J1885; J2405; J7030; Q9967

== ENCOUNTER 2019-08-12 11:26 | Emergency (ER) | payer MEDICAID ==
[~2019-08-12] VITALS: Ht 157.5 cm; Wt 70.7 kg
[~2019-08-12 11:26] MED LIST changes: +ASPI1TAB61 PO; +BUTA-177 PO; +KETO10TA PO; +LEVE500T53 PO; +METH500T7 PO; +METO25TA35 PO; +NICO-487 TD; +ONDA4TAB13 SL; +OXYC1TAB7 PO; +PANT40TA5 PO; +POLY17PO5 PO
[2019-08-12 11:35] VITALS: BP 126/78
[2019-08-12] MEDS ORDERED: LIDOCAINE-MPF 1%, 5ML INFIL ONE (12:30)
[2019-08-12] MEDS ORDERED: HYDROcodone/APAP 5/325 TABLET PO ONE (12:30)
[2019-08-12] MEDS ORDERED: HYDROcodone/APAP 5/325 TABLET ONE (12:36)
[2019-08-12] MEDS ORDERED: LIDOCAINE-MPF 1%, 5ML ONE (12:37)
== END 2019-08-12 14:15 | disposition home or self-care (01) ==
LOC: ED 14:00
DX: L60.0 Ingrowing nail (principal); Z87.39 Personal history of other diseases of the musculoskeletal system and connective tissue; I10 Essential (primary) hypertension; F31.9 Bipolar disorder, unspecified; F41.1 Generalized anxiety disorder; F20.9 Schizophrenia, unspecified
CPT/HCPCS: 11730; 99283

== ENCOUNTER 2019-11-10 18:50 | Emergency (ER) | payer MEDICAID ==
[~2019-11-10] VITALS: Ht 157.5 cm; Wt 68.8 kg
[2019-11-10] MEDS ORDERED: ASPIRIN 81 MG TABLET CHEW ONE (19:14)
[2019-11-10] MEDS ORDERED: MORPHINE SULFATE 4 MG/ML, 1ML ONE (19:14)
[2019-11-10] MEDS ORDERED: ONDANSETRON 2MG/ML, 2ML ONE (19:14)
[2019-11-10] MEDS ORDERED: SODIUM CHLORIDE FLUSH 10ML SYR IVF ONE (19:30)
[2019-11-10] MEDS ORDERED: ONDANSETRON 2MG/ML, 2ML IVPush ONE (19:30)
[2019-11-10] MEDS ORDERED: MORPHINE SULFATE 4 MG/ML, 1ML IVPush PRN (19:30)
[2019-11-10] MEDS ORDERED: ASPIRIN 81 MG TABLET CHEW PO ONE (19:30)
[2019-11-10] MEDS ORDERED: HYDROmorphone 1 MG/ML, 1ML INJ ONE (19:49)
[2019-11-10 19:58] LABS: BASOPHILS # (AUTO) 0.03 x10^3/uL (0-0.1); BASOPHILS % (AUTO) 0 % (0-1); EOSINOPHILS # (AUTO) 0.36 x10^3/uL (0-0.4); EOSINOPHILS % (AUTO) 5 % (1-7); LYMPHOCYTES # (AUTO) 3.76 x10^3/uL (1-3.4); LYMPHOCYTES % (AUTO) 48 % (22-44); MD NO; MEAN CORPUSCULAR HEMOGLOBIN 33.8 pg (27.0-34.8); MEAN CORPUSCULAR VOLUME 96.7 fL (80-100); MEAN PLATELET VOLUME 8.1 fL (7.4-10.4); MONOCYTES # (AUTO) 0.83 x10^3/uL (0.2-0.8); MONOCYTES % (AUTO) 11 % (2-9); NEUTROPHILS # (AUTO) 2.89 x10^3/uL (1.8-6.8); NEUTROPHILS % (AUTO) 37 % (42-75); PLATELET COUNT 225 x10^3/uL (130-400); RED CELL DISTRIBUTION WIDTH 12.7 % (9.6-15.2)
[2019-11-10] MEDS ORDERED: HYDROmorphone 1 MG/ML, 1ML INJ IV ONE (20:00)
[2019-11-10 20:01] LABS: ALANINE AMINOTRANSFERASE 43 U/L (12-78); ALBUMIN 3.9 g/dL (3.4-5.0); ANION GAP 5 mmol/L (5-15); CHLORIDE 113 mmol/L (98-107); CREATININE 0.75 mg/dL (0.55-1.02)
[2019-11-10 20:06] LABS: ALKALINE PHOSPHATASE 103 U/L (45-117); BILIRUBIN,TOTAL 0.2 mg/dL (0.2-1.0); TOTAL PROTEIN 8.2 g/dL (6.4-8.2); TROPONIN I < 0.015 ng/mL (0.000-0.045)
--- NOTE | 2019-11-10 20:22 | NUR ---
PT STATES PAIN IS A BIT BETTER. PT CRYING WHEN ENTERING ROOM. WARM BLANKET PROVIDED. [address] NOTIFIED[address]
[2019-11-10] MEDS ORDERED: OMNIPAQUE 350 MG/ML, 100ML BOTTLE ONE (21:03)
[2019-11-10 22:25] VITALS: BP 137/92
[2019-11-10] MEDS ORDERED: KETOROLAC 30 MG/1 ML IVPush ONE (22:30)
[2019-11-10] MEDS ORDERED: KETOROLAC 30 MG/1 ML ONE (22:31)
== END 2019-11-10 22:42 | disposition home or self-care (01) ==
LOC: ED 19:50
DX: R07.89 Other chest pain (principal); R10.84 Generalized abdominal pain; R42 Dizziness and giddiness; I10 Essential (primary) hypertension; F17.210 Nicotine dependence, cigarettes, uncomplicated
CPT/HCPCS: 36415; 71275; 74177; 80053; 84484; 85025; 93005; 96374; 96375; 99285; 99406; J1170; J2270; J2405; Q9967

== ENCOUNTER 2019-11-11 09:52 | Emergency (ER) | payer MEDICAID ==
[~2019-11-11] VITALS: Ht 157.5 cm; Wt 69.3 kg
--- NOTE | 2019-11-11 10:14 | NUR ---
FIRST CONTACT WITH PT. PT STATES "LAST NIGHT I CAME IN FOR CP AND THAT CAME OUT FINE BUT I'M STILL HAVING PAIN AND I HAD A HYSTERECTOMY, OOPHERECTOMY, BLADDER LIFT AND RECTAL REPAIR 3 WEEKS AGO. I'M STILL HACING THE CHEST PAIN AND SOB. THIS MORNING I ALSO FELT REALLY HOT". WAS SEEN AT [facility] ED LAST NIGHT FOR SAME SX. SURGERY DONE BY DR. RUEDA AT [facility]. C/O BURNING TO VAGINA. PT'S AOX4. RESPS EVEN AND UNLABORED. ALL MONITORS IN PLACE. CALL LIGHT WITHIN REACH. NSR RATE 90'S ON WILDLIFE ECOLOGIST AT THIS TIME. EDMD AT BEDSIDE TO EVALUATE AT THIS TIME.
[2019-11-11] MEDS ORDERED: KETOROLAC 30 MG/1 ML ONE (10:18)
[2019-11-11] MEDS ORDERED: NITROGLYCERIN SINGLE TAB 0.4 MG SL ONE (10:18)
[2019-11-11] MEDS ORDERED: SODIUM CHLORIDE FLUSH 10ML SYR IVF ONE (10:30)
[2019-11-11] MEDS ORDERED: NITROGLYCERIN SINGLE TAB 0.4 MG SL PRN (10:30)
[2019-11-11] MEDS ORDERED: KETOROLAC 30 MG/1 ML IVPush ONE (10:30)
--- NOTE | 2019-11-11 10:30 | NUR ---
PIV EST ON L AC WITH NO COMPLICATIONS. PT MEDICATED PER EMAR. PT TOLERATED WELL.
--- NOTE | 2019-11-11 10:43 | NUR ---
PT AMB TO BR WITH STEADY GAIT.
[2019-11-11 11:03] LABS: BASOPHILS # (AUTO) 0.02 x10^3/uL (0-0.1); BASOPHILS % (AUTO) 0 % (0-1); EOSINOPHILS # (AUTO) 0.23 x10^3/uL (0-0.4); EOSINOPHILS % (AUTO) 3 % (1-7); LYMPHOCYTES % (AUTO) 33 % (22-44); MD NO; MEAN CORPUSCULAR HEMOGLOBIN 33.6 pg (27.0-34.8); MEAN CORPUSCULAR HGB CONC 34.7 g/dL (32.4-35.8); MEAN PLATELET VOLUME 8.1 fL (7.4-10.4); MONOCYTES # (AUTO) 0.48 x10^3/uL (0.2-0.8); MONOCYTES % (AUTO) 7 % (2-9); NEUTROPHILS # (AUTO) 4.22 x10^3/uL (1.8-6.8); NEUTROPHILS % (AUTO) 57 % (42-75); PLATELET COUNT 215 x10^3/uL (130-400); RED BLOOD COUNT 4.45 x10^6/uL (3.82-5.3); RED CELL DISTRIBUTION WIDTH 12.9 % (9.6-15.2)
[2019-11-11 11:09] LABS: ANION GAP 8 mmol/L (5-15); CALCIUM 9.8 mg/dL (8.5-10.1); CHLORIDE 111 mmol/L (98-107); CREATININE 0.83 mg/dL (0.55-1.02)
[2019-11-11 11:14] VITALS: BP 110/65
[2019-11-11 11:14] LABS: TROPONIN I < 0.015 ng/mL (0.000-0.045)
[2019-11-11] MEDS ORDERED: HYDROcodone/APAP 5/325 TABLET ONE (11:17)
[2019-11-11] MEDS ORDERED: HYDROcodone/APAP 5/325 TABLET PO STA (11:20)
--- NOTE | 2019-11-11 11:20 | NUR ---
PT C/O PAIN AND REQUESTING PAIN MED AT THIS TIME. EDMD NOTIFIED.
--- NOTE | 2019-11-11 11:21 | NUR ---
PT MEDICATED PER EMAR. PT TOLERATED WELL.
[2019-11-11] MEDS ORDERED: HYDROcodone/APAP 5/325 TABLET PO ONE (11:30)
--- NOTE | 2019-11-11 11:45 | NUR ---
Patient given discharge instructions and they have confirmed that they understand the instructions. Patient ambulatory with steady gait.
== END 2019-11-11 11:46 | disposition home or self-care (01) ==
LOC: ED 10:12
DX: R07.89 Other chest pain (principal); F41.1 Generalized anxiety disorder; I10 Essential (primary) hypertension; E11.9 Type 2 diabetes mellitus without complications; F17.200 Nicotine dependence, unspecified, uncomplicated
CPT/HCPCS: 36415; 80048; 82040; 84484; 85025; 93005; 96374; 99284; J1885

== ENCOUNTER 2020-02-25 20:28 | Emergency (ER) | payer MEDICAID ==
[~2020-02-25] VITALS: Ht 157.5 cm; Wt 72.5 kg
--- NOTE | 2020-02-25 20:47 | NUR ---
PT C/O PAINFUL URINATION, WELL N/V X2 DAYS. PT AMBULATED TO RESTROOM WITH STEADY GAIT TO PROVIDE URINE SAMPLE. UA COLLECTED AND SENT TO LAB. PT CONNECTED TO MONITORING. CALL LIGHT IN REACH.
[2020-02-25 21:35] LABS: MICROSCOPIC INDICATED
--- NOTE | 2020-02-25 21:40 | NUR ---
PIV PLACED, PT TOLERATED WELL.
[2020-02-25] MEDS ORDERED: ONDANSETRON 2MG/ML, 2ML ONE (21:47)
[2020-02-25] MEDS ORDERED: MORPHINE SULFATE 4 MG/ML, 1ML ONE (21:47)
--- NOTE | 2020-02-25 21:52 | NUR ---
MEDS ADMIN PER NOV. PT PLACE ON OXYGEN FOR SAFETY.
[2020-02-25] MEDS ORDERED: ONDANSETRON 2MG/ML, 2ML IVPush ONE (22:00)
[2020-02-25] MEDS ORDERED: MORPHINE SULFATE 4 MG/ML, 1ML IVPush PRN (22:00)
[2020-02-25 22:19] LABS: ALANINE AMINOTRANSFERASE 90 U/L (12-78); ALBUMIN 3.3 g/dL (3.4-5.0); ANION GAP 3 mmol/L (5-15); CALCIUM 8.9 mg/dL (8.5-10.1); CHLORIDE 107 mmol/L (98-107); CREATININE 0.99 mg/dL (0.55-1.02)
[2020-02-25 22:24] LABS: ALKALINE PHOSPHATASE 72 U/L (45-117); BILIRUBIN,TOTAL 0.6 mg/dL (0.2-1.0); TOTAL PROTEIN 7.5 g/dL (6.4-8.2); TROPONIN I < 0.015 ng/mL (0.000-0.045)
[2020-02-25 22:32] LABS: BASOPHILS # (AUTO) 0.06 x10^3/uL (0-0.1); BASOPHILS % (AUTO) 1 % (0-1); EOSINOPHILS # (AUTO) 0.16 x10^3/uL (0-0.4); EOSINOPHILS % (AUTO) 2 % (1-7); LYMPHOCYTES # (AUTO) 3.68 x10^3/uL (1-3.4); LYMPHOCYTES % (AUTO) 39 % (22-44); MD SCAN; MEAN CORPUSCULAR HEMOGLOBIN 33.7 pg (27.0-34.8); MEAN CORPUSCULAR HGB CONC 33.8 g/dL (32.4-35.8); MEAN CORPUSCULAR VOLUME 99.7 fL (80-100); MEAN PLATELET VOLUME 8.5 fL (7.4-10.4); MONOCYTES # (AUTO) 0.95 x10^3/uL (0.2-0.8); MONOCYTES % (AUTO) 10 % (2-9); NEUTROPHILS # (AUTO) 4.68 x10^3/uL (1.8-6.8); NEUTROPHILS % (AUTO) 49 % (42-75); PLATELET COUNT 171 x10^3/uL (130-400); RED BLOOD COUNT 3.35 x10^6/uL (3.82-5.3); RED CELL DISTRIBUTION WIDTH 13.6 % (9.6-15.2)
--- NOTE | 2020-02-25 22:34 | NUR ---
PT TAKEN TO CT
[2020-02-25 22:53] VITALS: BP 98/50
--- NOTE | 2020-02-25 22:54 | NUR ---
PT BACK FROM CT. PT RESTING COMFORTABLY ON [employer] WATCHING TV. RUBY.
--- NOTE | 2020-02-25 23:02 | NUR ---
ALL RESULTS ARE BACK AT THIS TIME. CHART UP FOR RECHECK.
--- NOTE | 2020-02-25 23:06 | NUR ---
MD AT BEDSIDE TO UPDATE PT ON POC.
[2020-02-25] MEDS ORDERED: OMNIPAQUE 350 MG/ML, 100ML BOTTLE ONE (23:07)
[2020-02-25] MEDS ORDERED: KETOROLAC 30 MG/1 ML ONE (23:13)
--- NOTE | 2020-02-25 23:20 | NUR ---
MEDS ADMIN PER NOV. PIV REMOVED. PT GETTING DRESSED.
[2020-02-25] MEDS ORDERED: KETOROLAC 30 MG/1 ML IVPush ONE (23:30)
== END 2020-02-25 23:29 | disposition home or self-care (01) ==
LOC: ED 22:22
DX: G44.219 Episodic tension-type headache, not intractable (principal); R30.0 Dysuria; M54.2 Cervicalgia; R10.84 Generalized abdominal pain; R51 Headache; F17.200 Nicotine dependence, unspecified, uncomplicated; I10 Essential (primary) hypertension; E11.9 Type 2 diabetes mellitus without complications
CPT/HCPCS: 36415; 70450; 70496; 70498; 71045; 80053; 81001; 83605; 84145; 84484; 85025; 87040; 87086; 96374; 96375; 99285; J1885; J2270; J2405; Q9967

== ENCOUNTER 2020-02-27 09:54 | Emergency (ER) | payer MEDICAID ==
[~2020-02-27] VITALS: Ht 157.5 cm; Wt 78.0 kg
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
--- NOTE | 2020-02-27 10:19 | NUR ---
AT BEDSIDE FOR ED EVAL.
[2020-02-27] MEDS ORDERED: SODIUM CHLORIDE 0.9% 1,000 ML IV ONE (10:21)
[2020-02-27] MEDS ORDERED: SODIUM CHLORIDE FLUSH 10ML SYR IVF ONE (10:30)
[2020-02-27] MEDS ORDERED: SODIUM CHLORIDE 0.9% 1,000ML IVBOLUS ONE (10:30)
[2020-02-27] MEDS ORDERED: ONDANSETRON 2MG/ML, 2ML IVPush ONE (10:30)
--- NOTE | 2020-02-27 10:35 | NUR ---
LAB IN ROOM.
--- NOTE | 2020-02-27 10:38 | NUR ---
THIS RN UNABLE TO START PIV. AWAITING RN FOR US PIV.
[2020-02-27] MEDS ORDERED: ONDANSETRON 2MG/ML, 2ML ONE (11:00)
[2020-02-27] MEDS ORDERED: MORPHINE SULFATE 4 MG/ML, 1ML ONE ×2 (11:00→12:25)
[2020-02-27 11:05] LABS: ALBUMIN 3.9 g/dL (3.4-5.0); ANION GAP 6 mmol/L (5-15); CALCIUM 9.2 mg/dL (8.5-10.1); CHLORIDE 110 mmol/L (98-107)
[2020-02-27 11:08] LABS: ALANINE AMINOTRANSFERASE 85 U/L (12-78); ALKALINE PHOSPHATASE 91 U/L (45-117); BILIRUBIN,TOTAL 0.5 mg/dL (0.2-1.0); CREATININE 0.95 mg/dL (0.55-1.02); TOTAL PROTEIN 8.6 g/dL (6.4-8.2)
[2020-02-27] MEDS: MORPHINE SULFATE 4 MG/ML, 1ML IVPush PRN ×2 (11:10→12:32)
[2020-02-27 11:14] LABS: BASOPHILS # (AUTO) 0.03 x10^3/uL (0-0.1); BASOPHILS % (AUTO) 0 % (0-1); EOSINOPHILS # (AUTO) 0.06 x10^3/uL (0-0.4); EOSINOPHILS % (AUTO) 1 % (1-7); LYMPHOCYTES # (AUTO) 1.21 x10^3/uL (1-3.4); LYMPHOCYTES % (AUTO) 14 % (22-44); MD NO; MEAN CORPUSCULAR HEMOGLOBIN 33.8 pg (27.0-34.8); MEAN CORPUSCULAR HGB CONC 33.8 g/dL (32.4-35.8); MEAN CORPUSCULAR VOLUME 100.1 fL (80-100); MEAN PLATELET VOLUME 8.3 fL (7.4-10.4); MONOCYTES # (AUTO) 0.51 x10^3/uL (0.2-0.8); MONOCYTES % (AUTO) 6 % (2-9); NEUTROPHILS # (AUTO) 7.03 x10^3/uL (1.8-6.8); NEUTROPHILS % (AUTO) 80 % (42-75); PLATELET COUNT 249 x10^3/uL (130-400); RED BLOOD COUNT 4.05 x10^6/uL (3.82-5.3); RED CELL DISTRIBUTION WIDTH 13.5 % (9.6-15.2)
--- NOTE | 2020-02-27 12:04 | NUR ---
PT AMBULATED TO THE COMMODE W/ A STEADY GAIT. URINE COLLECTED AND SENT TO LAB.
[2020-02-27 12:23] LABS: MICROSCOPIC NOT IND
--- NOTE | 2020-02-27 12:25 | NUR ---
SPOKE W/ REGARDING PTS PRESENTATION. DIAPHORESIS, ANXIETY, TACHYCARDIA, N/V. URINE TOX SCREEN ADDED TO ORDERS.
[2020-02-27] MEDS ORDERED: PROMETHAZINE 25 MG/ML, 1ML IM ONE (12:30)
[2020-02-27] MEDS ORDERED: PROMETHAZINE 25 MG/ML, 1ML ONE (12:33)
[2020-02-27 13:14] LABS: AMPHETAMINE SCREEN, URINE Negative (Negative); BARBITURATE SCREEN, URINE Negative (Negative); BENZODIAZEPINE SCREEN, URINE Negative (Negative); CANNABINOID SCREEN, URINE Positive (Negative); COCAINE SCREEN, URINE Negative (Negative); METHADONE SCREEN, URINE Positive (Negative); OPIATE SCREEN, URINE Positive (Negative)
[2020-02-27 13:27] VITALS: BP 132/73
--- NOTE | 2020-02-27 13:28 | NUR ---
PT ANXIOUS AND CRYING. ALL TESTS RESULTED. PT IS UP FOR RECHECK AT THIS TIME.
--- NOTE | 2020-02-27 14:43 | NUR ---
LUNCH RN: UPDATED PT ON POC. PT TO BE DCd HOME. IV OUT, PT UNHOOKED AND CURRENTLY GETTING DRESSED IN ROOM. AWAITING PAPERS AT THIS TIME
== END 2020-02-27 14:54 | disposition home or self-care (01) ==
LOC: ED 10:12
DX: M79.10 Myalgia, unspecified site (principal); F41.1 Generalized anxiety disorder; R06.4 Hyperventilation; Z03.818 Encounter for observation for suspected exposure to other biological agents ruled out; R94.31 Abnormal electrocardiogram [ECG] [EKG]; E11.9 Type 2 diabetes mellitus without complications; I10 Essential (primary) hypertension; F20.9 Schizophrenia, unspecified; G43.909 Migraine, unspecified, not intractable, without status migrainosus; F17.200 Nicotine dependence, unspecified, uncomplicated
CPT/HCPCS: 36415; 71045; 80053; 80307; 81003; 83605; 85025; 87040; 93005; 96372; 96374; 96375; 96376; 99285; J2270; J2405; J2550; J7030; U0001

== ENCOUNTER 2020-04-02 03:29 | Emergency (ER) | payer MEDICAID ==
[~2020-04-02] VITALS: Ht 167.6 cm; Wt 50.0 kg
--- NOTE | 2020-04-02 03:44 | NUR ---
PT BIB [facility] WITH REPORT OF ABDOMINAL PAIN X 7 HOURS. PT WITH HISTORY OF EPIPSY, HTN, BONE SPURS, RA, LUPUS. PT STATES SHE HASN'T BEEN ABLE TO KEEP ANYTHING DOWN SINCE VOMITING BEGAN. PT MEDICATED WITH 4MG PO ZOFRAN EN ROUTE TO ED. PT CHANGED INTO GOWN AND ATTACHED TO VS MONITORS ON ARRIVAL TO HOSPITAL. PT VSS. PT AMBULATES TO [facility] WITH STEADY GAIT. PT PROVIDED WITH WARM BLANKET AND HAS CALL LIGHT WITHIN REACH. PT EDUCATED ON ER PROCESS AND VERBALIZES UNDERSTANDING. AWAITING ERP.
[2020-04-02] MEDS ORDERED: FAMOTIDINE 20 MG/2 ML ONE (03:57)
[2020-04-02] MEDS ORDERED: PROCHLORPERAZINE 5 MG/ML, 2ML ONE (03:57)
[2020-04-02] MEDS ORDERED: PROCHLORPERAZINE 5 MG/ML, 2ML IVPush ONE (04:00)
[2020-04-02] MEDS ORDERED: MAALOX/HYOSCYAMINE/LIDOCAINE 45 ML BTL PO ONE (04:00)
[2020-04-02] MEDS ORDERED: FAMOTIDINE 20 MG/2 ML IV ONE (04:00)
[2020-04-02] MEDS ORDERED: SODIUM CHLORIDE 0.9% 1,000ML IVBOLUS ONE (04:00)
[2020-04-02] MEDS ORDERED: SODIUM CHLORIDE FLUSH 10ML SYR IVF ONE (04:00)
[2020-04-02 04:27] LABS: MEAN CORPUSCULAR HEMOGLOBIN 33.2 pg (27.0-34.8); MEAN CORPUSCULAR HGB CONC 34.3 g/dL (32.4-35.8); MEAN CORPUSCULAR VOLUME 96.7 fL (80-100); RED BLOOD COUNT 4.37 x10^6/uL (3.82-5.3); RED CELL DISTRIBUTION WIDTH 13.8 % (9.6-15.2)
--- NOTE | 2020-04-02 04:30 | NUR ---
PT MEDICATED PER NOV. PT TO XRAY VIA WHEELCHAIR AT THIS TIME.
[2020-04-02 04:55] LABS: BASOPHILS # (AUTO) 0.06 x10^3/uL (0-0.1); BASOPHILS % (AUTO) 1 % (0-1); EOSINOPHILS # (AUTO) 0.04 x10^3/uL (0-0.4); EOSINOPHILS % (AUTO) 0 % (1-7); LYMPHOCYTES # (AUTO) 1.65 x10^3/uL (1-3.4); LYMPHOCYTES % (AUTO) 18 % (22-44); MD SCAN; MEAN PLATELET VOLUME 8.7 fL (7.4-10.4); MONOCYTES # (AUTO) 0.34 x10^3/uL (0.2-0.8); MONOCYTES % (AUTO) 4 % (2-9); NEUTROPHILS # (AUTO) 7.35 x10^3/uL (1.8-6.8); NEUTROPHILS % (AUTO) 78 % (42-75); PLATELET COUNT 250 x10^3/uL (130-400)
--- NOTE | 2020-04-02 05:00 | NUR ---
PT RESTING COMFORTABLY IN [facility] AT THIS TIME. PT PROVIDED ADDITIONAL BLANKETS FOR PT COMFORT. PT VS UPDATED IN EMR AT THIS TIME.
[2020-04-02 05:01] VITALS: BP 197/116
[2020-04-02] MEDS ORDERED: MAALOX/HYOSCYAMINE/LIDOCAINE 45 ML BTL ONE (05:02)
[2020-04-02 05:52] LABS: ALBUMIN 3.7 g/dL (3.4-5.0); ANION GAP 8 mmol/L (5-15); CALCIUM 8.9 mg/dL (8.5-10.1); CHLORIDE 114 mmol/L (98-107)
[2020-04-02 05:57] LABS: ALANINE AMINOTRANSFERASE 31 U/L (12-78); ALKALINE PHOSPHATASE 85 U/L (45-117); BILIRUBIN,TOTAL 0.6 mg/dL (0.2-1.0); CREATININE 0.82 mg/dL (0.55-1.02); TOTAL PROTEIN 7.6 g/dL (6.4-8.2)
--- NOTE | 2020-04-02 06:43 | NUR ---
PT D/C WITH D/C SUMMARY AND SCRIPTS. ALL QUESTIONS ANSWERED. PT IV D/C WITH TIP INTACT. PT AMBULATES TO REGISTRATION DESK WITH STEADY GAIT FOR D/C HOME WITH BOYFRIEND. PT DENIES ANY OTHER NEEDS PERTAINING TO THIS VISIT.
== END 2020-04-02 06:48 | disposition home or self-care (01) ==
LOC: ED 06:00
DX: A08.4 Viral intestinal infection, unspecified (principal); R10.84 Generalized abdominal pain; R11.2 Nausea with vomiting, unspecified; E11.9 Type 2 diabetes mellitus without complications; I10 Essential (primary) hypertension; G43.909 Migraine, unspecified, not intractable, without status migrainosus; M79.7 Fibromyalgia
CPT/HCPCS: 36415; 74021; 80053; 83690; 85025; 96361; 96374; 96375; 99284; J0780; J3490; J7030

== ENCOUNTER 2020-06-29 19:11 | Emergency (ER) | payer MEDICAID ==
[~2020-06-29] VITALS: Ht 157.5 cm; Wt 77.8 kg
[~2020-06-29 19:11] MED LIST changes: -PANT40TA5 PO; +PANT40TA6 PO
[2020-06-29 19:19] VITALS: BP 137/91
== END 2020-06-29 19:50 | disposition home or self-care (01) ==
LOC: ED 19:40
DX: K08.89 Other specified disorders of teeth and supporting structures (principal); F17.210 Nicotine dependence, cigarettes, uncomplicated; E11.9 Type 2 diabetes mellitus without complications
CPT/HCPCS: 99283; 99406

== ENCOUNTER 2020-06-29 20:31 | Emergency (ER) | payer MEDICAID | END 2020-06-29 20:46 | LOC: ED 20:40 | DX: Z53.21 Procedure and treatment not carried out due to patient leaving prior to being seen by health care provider (principal) ==

== ENCOUNTER 2020-07-25 02:13 | Emergency (ER) | payer MEDICAID ==
[~2020-07-25] VITALS: Ht 157.5 cm; Wt 76.5 kg
[2020-07-25 02:15] VITALS: BP 150/82
[2020-07-25] MEDS ORDERED: LIDOCAINE-MPF 1%, 5ML ONE (02:27)
--- NOTE | 2020-07-25 02:30 | NUR ---
ISIAHO GIVEN TO PER VERBAL ORDER. IN ROOM FOR INJECTION.
[2020-07-25] MEDS ORDERED: OXYcodone/APAP 5/325MG TABLET ONE (02:40)
--- NOTE | 2020-07-25 02:46 | NUR ---
Patient given discharge instructions and they have confirmed that they understand the instructions. Patient ambulatory with steady gait.
[2020-07-25] MEDS ORDERED: OXYcodone/APAP 5/325MG TABLET PO ONE (03:00)
== END 2020-07-25 02:48 | disposition home or self-care (01) ==
LOC: ED 02:40
DX: K02.9 Dental caries, unspecified (principal); K08.89 Other specified disorders of teeth and supporting structures; I10 Essential (primary) hypertension; E11.9 Type 2 diabetes mellitus without complications; F17.200 Nicotine dependence, unspecified, uncomplicated; Z86.19 Personal history of other infectious and parasitic diseases
CPT/HCPCS: 64400; 99284

== ENCOUNTER 2021-04-14 15:31 | Emergency (ER) | payer MEDICAID ==
[~2021-04-14] VITALS: Ht 157.5 cm; Wt 70.6 kg
[~2021-04-14 15:31] MED LIST changes: +METH-639 PO; -METH500T7 PO; -NICO-487 TD; +NICO-587 TD
--- NOTE | 2021-04-14 16:02 | NUR ---
PT UPRIGHT ON GURNEY AWAKE WITH C/O RLQ ABD PAIN, RESPONDS APPROP TO STAFF, COMFORT MEASURES PROVIDED, CALL LIGHT WITHIN REACH.
[2021-04-14] MEDS ORDERED: SODIUM CHLORIDE FLUSH 10ML SYR IVF ONE (16:30)
[2021-04-14] MEDS ORDERED: ONDANSETRON 2MG/ML, 2ML IVPush ONE (16:30)
[2021-04-14] MEDS ORDERED: SODIUM CHLORIDE 0.9% 1,000ML IVBOLUS ONE (16:30)
[2021-04-14] MEDS ORDERED: ONDANSETRON 2MG/ML, 2ML ONE (16:51)
[2021-04-14] MEDS ORDERED: MORPHINE SULFATE 4 MG/ML, 1ML ONE ×2 (16:51→18:27)
[2021-04-14] MEDS: MORPHINE SULFATE 4 MG/ML, 1ML IVPush PRN ×2 (16:52→18:28)
[2021-04-14 17:01] LABS: MICROSCOPIC NOT IND
--- NOTE | 2021-04-14 17:03 | NUR ---
PT REMAINS UPRIGHT ON GURNEY AWAKE "A LITTLE MORE COMFORTABLE" AT REST AFTER PAIN MED, RESPONDS APPROP TO STAFF, NAD, NO NEEDS AT THIS TIME, CALL LIGHT WITHIN REACH.
--- NOTE | 2021-04-14 17:44 | NUR ---
LAB AT FOR LAB DRAW THIS RN UNABLE TO OBTAIN BLOOD RETURN DURING PIV INSERTION.
--- NOTE | 2021-04-14 18:02 | NUR ---
PT UPRIGHT ON GURNEY AWAKE WITH CONTINUED C/O PAIN, RESPONDS APPROP TO STAFF, COMFORT MEASURES PROVIDED, CALL LIGHT WITHIN REACH.
[2021-04-14 18:24] LABS: BASOPHILS % (AUTO) 1 % (0-1); EOSINOPHILS % (AUTO) 1 % (1-7); LYMPHOCYTES % (AUTO) 43 % (22-44); MEAN CORPUSCULAR HEMOGLOBIN 35.1 pg (27.0-34.8); MEAN CORPUSCULAR HGB CONC 33.9 g/dL (32.4-35.8); MEAN PLATELET VOLUME 8.4 fL (7.4-10.4); MONOCYTES % (AUTO) 11 % (2-9); NEUTROPHILS % (AUTO) 44 % (42-75); PLATELET COUNT 207 x10^3/uL (130-400); RED BLOOD COUNT 3.93 x10^6/uL (3.82-5.3); RED CELL DISTRIBUTION WIDTH 13.5 % (9.6-15.2)
[2021-04-14 18:35] LABS: ALBUMIN 3.8 g/dL (3.4-5.0); ANION GAP 4 mmol/L (5-15); CALCIUM 8.9 mg/dL (8.5-10.1); CHLORIDE 114 mmol/L (98-107)
[2021-04-14 18:38] LABS: ALANINE AMINOTRANSFERASE 17 U/L (12-78); ALKALINE PHOSPHATASE 88 U/L (45-117); BILIRUBIN,TOTAL 0.3 mg/dL (0.2-1.0); TOTAL PROTEIN 7.2 g/dL (6.4-8.2)
--- NOTE | 2021-04-14 19:05 | NUR ---
PT REMAINS UPRIGHT ON GURNEY AWAKE "A LITTLE MORE COMFORTABLE AGAIN" AT REST AFTER PAIN MED, RESPONDS APPROP TO STAFF, NAD, NO NEEDS AT THIS TIME, CALL LIGHT WITHIN REACH.
--- NOTE | 2021-04-14 19:22 | NUR ---
PT RETURNED FROM CT.
[2021-04-14] MEDS ORDERED: OMNIPAQUE 350 MG/ML, 100ML BOTTLE ONE (19:45)
--- NOTE | 2021-04-14 20:00 | NUR ---
PT UPRIGHT ON GURNEY AWAKE WITH C/O RETURNING PAIN, COMFORT MEASURES PROVIDED, CALL LIGHT WITHIN REACH. AWAITING ERP UPDATE FOR DISPO.
--- NOTE | 2021-04-14 20:13 | NUR ---
ERP AT BS UPDATING PT ON POC.
[2021-04-14 20:17] VITALS: BP 103/69
--- NOTE | 2021-04-14 20:31 | NUR ---
Patient given discharge instructions and they have confirmed that they understand the instructions. Patient ambulatory with steady gait. NAD, all questions answered appropriately, denies additional needs at this time. No personal belongings left in room after discharge.
== END 2021-04-14 20:33 | disposition home or self-care (01) ==
LOC: ED 16:30
DX: R10.31 Right lower quadrant pain (principal); R11.2 Nausea with vomiting, unspecified; R50.9 Fever, unspecified; R00.0 Tachycardia, unspecified; I10 Essential (primary) hypertension; E11.9 Type 2 diabetes mellitus without complications
CPT/HCPCS: 36415; 74177; 80053; 81003; 83690; 85025; 93005; 96361; 96374; 96375; 96376; 99285; J2270; J2405; J7030; Q9967

== ENCOUNTER 2021-05-25 15:18 | Emergency (ER) | payer MEDICAID ==
[~2021-05-25] VITALS: Ht 157.5 cm; Wt 75.2 kg
[~2021-05-25 15:18] MED LIST changes: +BUPR600F2 BC; +CELECOXIB; +CLONIDINE; +DULOXETINE; +HYDROXYCHLOROQUINE; +LOSARTAN PO; +MEDROXYPROGESTERONE PO; +PREGABALIN PO
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
[2021-05-25] MEDS ORDERED: KETOROLAC 30 MG/1 ML ONE (15:37)
[2021-05-25] MEDS ORDERED: ACETAMINOPHEN 325 MG TABLET ONE (15:37)
--- NOTE | 2021-05-25 15:49 | NUR ---
TASK RN: MEDICATED PER MAR
[2021-05-25] MEDS ORDERED: KETOROLAC 30 MG/1 ML IM ONE (16:00)
[2021-05-25] MEDS ORDERED: ACETAMINOPHEN 325 MG TABLET PO ONE (16:00)
--- NOTE | 2021-05-25 16:04 | NUR ---
Report received from meal break RN and care assumed. Pt has already been medicated for pain is awaiting xray results/exams.
--- NOTE | 2021-05-25 16:15 | NUR ---
PA at bedside to discuss findings and plan for d/c. Pt asking specifically for more pain meds, when PA stated no narcotics, pt requested [place]. PA states one to be given prior to d/c, none as prescription. Pt agreed to these terms.
[2021-05-25] MEDS ORDERED: HYDROcodone/APAP 5/325 TABLET ONE (16:24)
[2021-05-25 16:30] VITALS: BP 129/80
[2021-05-25] MEDS ORDERED: HYDROcodone/APAP 5/325 TABLET PO ONE (16:30)
== END 2021-05-25 17:03 | disposition home or self-care (01) ==
LOC: ED 16:34
DX: S43.422A Sprain of left rotator cuff capsule, initial encounter (principal); S90.31XA Contusion of right foot, initial encounter; I10 Essential (primary) hypertension; E11.9 Type 2 diabetes mellitus without complications; X58.XXXA Exposure to other specified factors, initial encounter; Y93.89 Activity, other specified; Y92.009 Unspecified place in unspecified non-institutional (private) residence as the place of occurrence of the external cause; Y99.8 Other external cause status
CPT/HCPCS: 73030; 73630; 96372; 99284; J1885

== ENCOUNTER 2021-06-01 12:33 | Emergency (ER) | payer MEDICAID ==
[~2021-06-01] VITALS: Ht 157.5 cm; Wt 73.0 kg
[2021-06-01] MEDS ORDERED: KETOROLAC 30 MG/1 ML ONE (14:29)
[2021-06-01] MEDS ORDERED: KETOROLAC 30 MG/1 ML IM ONE (14:30)
[2021-06-01 14:35] VITALS: BP 100/55
[2021-06-01] MEDS ORDERED: ACETAMINOPHEN 325 MG TABLET ONE (14:41)
--- NOTE | 2021-06-01 14:51 | NUR ---
DC EDUCATION PROVIDED BY [facility]. PT TRANSFERED SELF TO WHEELCHAIR. WHEELED TO DC WITH RN. PT TO TAKE [facility]TM FOR TRANSPORT HOME.
[2021-06-01] MEDS ORDERED: ACETAMINOPHEN 325 MG TABLET PO ONE (15:00)
== END 2021-06-01 14:55 | disposition home or self-care (01) ==
LOC: ED 14:30
DX: L03.031 Cellulitis of right toe (principal); M79.671 Pain in right foot; E11.9 Type 2 diabetes mellitus without complications; G43.909 Migraine, unspecified, not intractable, without status migrainosus
CPT/HCPCS: 96372; 99283; J1885